=== PATIENT | female | born 1975 | race Caucasian/White ===

== ENCOUNTER 2020-05-12 09:46 | Inpatient (IN) | payer OTHER ==
[~2020-05-12] VITALS: Ht 172.7 cm; Wt 101.6 kg
[2020-05-12 10:26] LABS: APPEARANCE,URINE Clear (CLEAR); BILIRUBIN,URINE Small (NEGATIVE); COLOR,URINE Dark Yellow (YELLOW); GLUCOSE, URINE (UA) Negative (NEGATIVE); KETONES,URINE Trace mg/dL (NEGATIVE); LEUKOCYTE ESTERASE ,URINE Trace (NEGATIVE); NITRATE,URINE Negative (NEGATIVE); OCCULT BLOOD,URINE Negative (NEGATIVE); PH,URINE 5.5 (5.0-8.0); PROTEIN,URINE Trace mg/dL (NEGATIVE)
[2020-05-12] MEDS ORDERED: ONDANSETRON HCL 4 MG/2 ML VIAL ONE ×2 (10:29→15:31)
[2020-05-12] MEDS ORDERED: KETOROLAC TROMETHAMINE 30MG/ML ONE (10:29)
[2020-05-12] MEDS ORDERED: SODIUM CHLORIDE 0.9% 1000ML 1,000 ML IV ONE ×2 (10:31→15:13)
[2020-05-12 10:32] LABS: BASOPHILS % (AUTO) 0.5 % (0.0-5.0); EOSINOPHILS % (AUTO) 0.6 % (0.0-8.0); HEMATOCRIT 41.5 % (36-48); LYMPHOCYTES % (AUTO) 23.3 % (21.0-51.0); MEAN CORPUSCULAR HEMOGLOBIN 31.4 pg (27.0-33.0); MEAN CORPUSCULAR HGB CONC 34.7 g/dL (32.0-36.0); MEAN CORPUSCULAR VOLUME 90.4 fL (79-99); MONOCYTES % (AUTO) 5.8 % (3.0-13.0); NEUTROPHILS % (AUTO) 69.5 % (40.0-77.0); PLATELET COUNT (AUTO) 327 K/uL (130-400); RED BLOOD CELL COUNT(AUTO) 4.59 MIL/uL (4.00-5.50); RED CELL DISTRIBUTION WIDTH 11.9 % (11.0-15.5); WHITE BLOOD COUNT (AUTO) 14.2 K/uL (4.8-10.8)
[2020-05-12 10:47] LABS: RBC,URINE None Seen /HPF (0-1)
[2020-05-12 10:48] LABS: BACTERIA,URINE None Seen /HPF (None Seen); MUCUS,URINE Moderate LPF (None Seen); WBC,URINE 0-1 /HPF (0-1)
[2020-05-12 10:48] LABS: INR 0.92 (0.85-1.15); PARTIAL THROMBOPLASTIN TIME 26.5 SEC (26.3-35.5)
[2020-05-12 10:52] LABS: CREATININE 0.8 mg/dL (0.5-1.5); POTASSIUM 3.3 mmol/L (3.5-5.1)
[2020-05-12 10:57] LABS: ALBUMIN 3.8 g/dL (3.5-5.0); BILIRUBIN,TOTAL 0.6 mg/dL (0.2-1.0); TOTAL PROTEIN, SERUM 7.6 g/dL (6.0-8.3)
[2020-05-12] MEDS ORDERED: MORPHINE SULFATE 4 MG/1ML SYG ONE (12:54)
[2020-05-12] MEDS ORDERED: ZOSYN 3.375GM+NS 50ML 50 ML IV ONE (15:12)
[2020-05-12] MEDS ORDERED: HYDROMORPHONE 1 MG/1 ML AMP ONE ×2 (15:13→20:31)
[2020-05-12] MEDS ORDERED: MORPHINE SULFATE 2 MG/ML 1ML SYG IVP PRN (15:30)
[2020-05-12 16:23] VITALS: BP 158/99
[2020-05-12] MEDS: ONDANSETRON HCL 4 MG/2 ML VIAL IVP PRN (17:31)
[2020-05-12] MEDS ORDERED: KETOROLAC TROMETHAMINE 30MG/ML IM PRN (17:45)
[2020-05-12 20:00] VITALS: BP 124/72
--- NOTE | 2020-05-12 20:05 | NUR ---
PT CLAIMS SHE IS IN CONSTANT PAIN. CALLED DR CURRAN VIA PHONE AND REFERRED PT'S COMPLAINTS. NEW MED ORDER RECEIVED, PLEASE REFER TO CPOE. WILL MEDICATE PT.
--- NOTE | 2020-05-12 20:20 | NUR ---
MEDS SHIFT ASSESSMENT DONE, PT CLAIMS OF ABDOMINAL PAINS. DUE MEDS ADMINISTERED, DILAUDID IV GIVEN FOR PAINS. KEPT RESTED AND COMFORTABLE IN BED. CALL LIGHT WITHIN REACH. WILL RE-ASSESS PT. Addendum: 05/13/20 at 0102 by SHAR HODGE RN RN Amended: Links added.
[2020-05-12] MEDS: ZOSYN 3.375GM+NS 50ML 50 ML IV SCH (22:21)
[2020-05-13] VITALS (26 sets, daily range): BP systolic 94–148; BP diastolic 52–85
[2020-05-13] MEDS: ONDANSETRON HCL 4 MG/2 ML VIAL IVP PRN ×3 (01:26→16:35)
[2020-05-13] MEDS: HYDROMORPHONE 1 MG/1 ML AMP IVP PRN ×4 (01:27→16:35)
--- NOTE | 2020-05-13 01:27 | NUR ---
NAUSEA/PAIN PT CALLS AND COMPLAINTS OF NAUSEA AND ABDOMINAL PAINS. MEDICATED WITH ZOFRAN IV AND DILAUDID IV. KEPT RESTED AND COMFORTABLE IN BED. RE-ITERATED ON FALL PRECAUTIONS. PT VERBALIZES UNDERSTANDING. CALL LIGHT WITHIN REACH. WILL RE-ASSESS PT.
[2020-05-13 04:59] LABS: BASOPHILS % (AUTO) 0.2 % (0.0-5.0); EOSINOPHILS % (AUTO) 0.2 % (0.0-8.0); HEMATOCRIT 37.1 % (36-48); LYMPHOCYTES % (AUTO) 19.2 % (21.0-51.0); MEAN CORPUSCULAR HGB CONC 34.2 g/dL (32.0-36.0); MEAN CORPUSCULAR VOLUME 90.5 fL (79-99); MONOCYTES % (AUTO) 7.5 % (3.0-13.0); NEUTROPHILS % (AUTO) 72.5 % (40.0-77.0); PLATELET COUNT (AUTO) 293 K/uL (130-400); WHITE BLOOD COUNT (AUTO) 16.1 K/uL (4.8-10.8)
[2020-05-13 05:11] LABS: CREATININE 0.8 mg/dL (0.5-1.5); MAGNESIUM 1.5 mg/dL (1.80-2.40); POTASSIUM 3.6 mmol/L (3.5-5.1)
[2020-05-13] MEDS: ZOSYN 3.375GM+NS 50ML 50 ML IV SCH ×3 (05:27→23:18)
--- NOTE | 2020-05-13 05:27 | NUR ---
MEDS PT JUST HAD HER SHOWER, TOLERATED ACTIVITY WELL. PT CLAIMS OF ABDOMINAL PAINS. MEDICATED WITH DILAUDID IV. ZOSYSabi GUO. KEPT NPO. FOR MORE CARE AND MANAGEMENT.
[2020-05-13] MEDS ORDERED: MULT-1296 PO (05:39)
[2020-05-13] MEDS ORDERED: LEVO100T12 PO (05:39)
[2020-05-13] MEDS ORDERED: VALA500T42 PO (05:39)
[2020-05-13] MEDS ORDERED: CHLO25TA3 PO (05:39)
[2020-05-13] MEDS ORDERED: FLUO20CA30 PO (05:39)
[2020-05-13] MEDS ORDERED: MIDAZOLAM HCL 1 MG/ML 2ML VIAL ONE (07:57)
[2020-05-13] MEDS ORDERED: DEXAMETHASONE SOD PHOSPHATE 10MG/ML 1ML VIAL ONE (08:00)
[2020-05-13] MEDS ORDERED: LIDOCAINE PF 2% 5ML ABBOJECT ONE (08:00)
[2020-05-13] MEDS ORDERED: SUCCINYLCHOLINE CHLORIDE 20 MG/ML 10 ML VIAL ONE (08:00)
[2020-05-13] MEDS ORDERED: ONDANSETRON HCL 4 MG/2 ML VIAL ONE (08:00)
[2020-05-13] MEDS ORDERED: GLYCOPYRROLATE 1 MG/5 ML SYRINGE ONE (08:01)
[2020-05-13] MEDS ORDERED: ROCURONIUM 10MG/1ML SYR 10 MG/ML ML ONE (08:01)
[2020-05-13] MEDS ORDERED: PROPOFOL 10 MG/ML 20ML VIAL IV ONE (08:01)
[2020-05-13] MEDS ORDERED: FENTANYL CITRATE PF 50 MCG/1 ML 2ML VIAL ONE ×2 (08:01→09:02)
[2020-05-13] MEDS ORDERED: NEOSTIGMINE 5MG/5ML SYR IV ONE (08:01)
[2020-05-13] MEDS ORDERED: BUPIVACAINE/PF 0.5% 30ML VIAL ONE (08:15)
[2020-05-13] MEDS ORDERED: PHENYLEPHRINE HCL 10 MG/ML 1ML VIAL IV ONE (08:18)
[2020-05-13] MEDS ORDERED: KETOROLAC TROMETHAMINE 30MG/ML ONE (08:38)
[2020-05-13] MEDS: LACTATED RINGERS 1000ML 1,000 ML IV SCH ×3 (09:00→23:19)
[2020-05-13] MEDS ORDERED: MEPERIDINE-PF 25 MG/ML SYG ONE (09:14)
--- NOTE | 2020-05-13 13:11 | NUR ---
Pt only performed 2 breaths after IS instructions. Pt refused to continue because she said it hurt when she took deep breaths. Pt encouraged to continue and to splint incisions. Pt was adamant about refusing and stated, "I promise to do it every hour." I informed her of the risks of not doing it, pt voice understanding. Tucker RUIZ notified. Addendum: 05/13/20 at 1320 by NICOLAS GARCIA RT Amended: Links added.
--- NOTE | 2020-05-13 14:39 | NUR ---
cm note met with patient and states resides at home with spouse independent with ambulation and adls. no dme. works, drives, dc plan is back home at dc. no dc needs. Addendum: 05/13/20 at 1441 by WALTER CAROLINA CM Amended: Links added.
[2020-05-13] MEDS ORDERED: POLYETHYLENE GLYCOL 3350 17 GM POWD.PACK ONE (16:59)
[2020-05-13] MEDS ORDERED: ACETAMINOPHEN-CODEINE 300/30MG TAB PO PRN (20:00)
[2020-05-13] MEDS ORDERED: KETOROLAC TROMETHAMINE 30MG/ML IV PRN (20:00)
[2020-05-14 03:10] VITALS: BP 107/58
[2020-05-14 05:08] LABS: BASOPHILS % (AUTO) 0.2 % (0.0-5.0); EOSINOPHILS % (AUTO) 0.1 % (0.0-8.0); HEMATOCRIT 31.8 % (36-48); LYMPHOCYTES % (AUTO) 25.7 % (21.0-51.0); MEAN CORPUSCULAR HEMOGLOBIN 31.4 pg (27.0-33.0); MEAN CORPUSCULAR HGB CONC 33.6 g/dL (32.0-36.0); MEAN CORPUSCULAR VOLUME 93.3 fL (79-99); MONOCYTES % (AUTO) 6.9 % (3.0-13.0); NEUTROPHILS % (AUTO) 66.6 % (40.0-77.0); PLATELET COUNT (AUTO) 264 K/uL (130-400); RED BLOOD CELL COUNT(AUTO) 3.41 MIL/uL (4.00-5.50); RED CELL DISTRIBUTION WIDTH 12.1 % (11.0-15.5); WHITE BLOOD COUNT (AUTO) 12.8 K/uL (4.8-10.8)
[2020-05-14 06:12] VITALS: BP 115/65
[2020-05-14] MEDS: ZOSYN 3.375GM+NS 50ML 50 ML IV SCH ×3 (06:26→23:31)
[2020-05-14] MEDS: POLYETHYLENE GLYCOL 3350 17 GM POWD.PACK PO SCH (09:39)
[2020-05-14] MEDS: ONDANSETRON HCL 4 MG/2 ML VIAL IVP PRN ×2 (09:39→18:07)
[2020-05-14] MEDS: HYDROMORPHONE 1 MG/1 ML AMP IVP PRN ×3 (09:40→23:31)
[2020-05-14] MEDS ORDERED: POTASSIUM CHLORIDE 20 MEQ ERTAB PO ONE (11:44)
[2020-05-14] MEDS ORDERED: LIDOCAINE HCL-MPF 1% 2ML VIAL IV PRN (11:45)
[2020-05-14] MEDS ORDERED: POTASSIUM CHLORIDE 20MEQ/100ML 100 ML IV PRN (11:45)
[2020-05-14] MEDS ORDERED: POTASSIUM CHLORIDE 20 MEQ ERTAB PO PRN (11:45)
[2020-05-14] MEDS ORDERED: POTASSIUM CHLORIDE 10% ELIXIR 20 MEQ/15 ML UDCUP PO PRN (11:45)
[2020-05-14 12:21] VITALS: BP 133/78
[2020-05-14 16:00] VITALS: BP 128/77
[2020-05-14 20:47] VITALS: BP 101/58
[2020-05-14] MEDS: LACTATED RINGERS 1000ML 1,000 ML IV SCH (23:31)
[2020-05-14 23:59] VITALS: BP 132/76
[2020-05-15] MEDS: LACTATED RINGERS 1000ML 1,000 ML IV SCH (02:45)
[2020-05-15 05:00] VITALS: BP 127/73
[2020-05-15] MEDS: ZOSYN 3.375GM+NS 50ML 50 ML IV SCH ×2 (06:40→15:00)
[2020-05-15] MEDS: HYDROMORPHONE 1 MG/1 ML AMP IVP PRN (06:44)
[2020-05-15 08:00] VITALS: BP 129/77
[2020-05-15] MEDS: POLYETHYLENE GLYCOL 3350 17 GM POWD.PACK PO SCH (09:00)
--- NOTE | 2020-05-15 10:45 | NUR ---
DR. MARCO A ALFARO PT C/O CONTINUED ABDOMINAL PAIN AND NOT FEELING WELL. NEW ORDERS RECEIVED FOR LAB DRAWS.
[2020-05-15 11:22] LABS: HEMATOCRIT 32.7 % (36-48); MEAN CORPUSCULAR HEMOGLOBIN 31.4 pg (27.0-33.0); MEAN CORPUSCULAR HGB CONC 33.6 g/dL (32.0-36.0); MEAN CORPUSCULAR VOLUME 93.4 fL (79-99); RED BLOOD CELL COUNT(AUTO) 3.5 MIL/uL (4.00-5.50); RED CELL DISTRIBUTION WIDTH 12.2 % (11.0-15.5); WHITE BLOOD COUNT (AUTO) 10.1 K/uL (4.8-10.8)
[2020-05-15 11:36] LABS: CREATININE 0.8 mg/dL (0.5-1.5); MAGNESIUM 1.6 mg/dL (1.80-2.40); POTASSIUM 3.5 mmol/L (3.5-5.1)
[2020-05-15 12:00] VITALS: BP 133/78
[2020-05-15] MEDS ORDERED: MAGNESIUM 4GM PREMIX 100ML 100 ML IV SCH (12:15)
--- NOTE | 2020-05-15 12:45 | NUR ---
DR. STRICKLAND INFORMED OF PT FEELING BETTER AND ORDERS RECEIVED FOR DISCHARGE AND TO F/U IN 1 WEEK AT OFFICE
[2020-05-15] MEDS: ONDANSETRON HCL 4 MG/2 ML VIAL IVP PRN (13:04)
--- NOTE | 2020-05-15 13:05 | NUR ---
DR. CURRAN ROUNDING ON PT. PT STATES IS FEELING BETTER, IS PASSING FLATUS AND HAD A BM. ORDERS RECEIVED FOR DISCHARGE.
[2020-05-15 16:19] VITALS: BP 130/77
--- NOTE | 2020-05-17 13:01 | NUR ---
Transitional Care - Post Discharge Note Spoke with patient at number listed. As per Mrs Marcum, she is doing well. She states she has a follow up with Dr Islas next week, and is taking discharge medications as ordered. The patient understands the importance of keeping the appointment and has agreed to keep appointment. I provided nursing education on medication use and potential side effects. Addendum: 05/17/20 at 1304 by DEEJAY LINARES Amended: Links added.
== END 2020-05-15 16:20 | disposition home or self-care (01) | DRG 343 ==
LOC: EDH 09:46 → EDHIP 15:17 → 3DH 16:10
PROVIDERS: ADMIT Internal Medicine Infectious Disease; ATTEND Internal Medicine Infectious Disease
PROC: 0DTJ4ZZ Resection of Appendix, Percutaneous Endoscopic Approach (ICD-10-PCS; principal; 2020-05-13 08:28)
DX: K35.80 Unspecified acute appendicitis (principal); E87.6 Hypokalemia; K21.9 Gastro-esophageal reflux disease without esophagitis; E78.5 Hyperlipidemia, unspecified; D72.829 Elevated white blood cell count, unspecified; E11.9 Type 2 diabetes mellitus without complications; F32.9 Major depressive disorder, single episode, unspecified; E07.9 Disorder of thyroid, unspecified; E66.9 Obesity, unspecified; Z68.34 Body mass index [BMI] 34.0-34.9, adult; Z88.8 Allergy status to other drugs, medicaments and biological substances
CPT/HCPCS: 36415; 71045; 74176; 76705; 80048; 80053; 81001; 81025; 82150; 82550; 83690; 83735; 84484; 85025; 85027; 85610; 85730; 93005; G0378; J0330; J1100; J1170; J1885; J2001; J2175; J2250; J2270; J2370; J2405; J2543; J2704; J2710; J3010; J3475; J3490; J7030; J7120

== ENCOUNTER → 2022-08-05 | Outpatient (CLI) | payer OTHER ==
[~2022-08-05] MED LIST: CHLO25TA3 PO; FLUO20CA30 PO; LEVO100T12 PO; MULT-1296 PO; VALA500T42 PO
== END | disposition home or self-care (01) ==
LOC: RAH 13:51
PROVIDERS: ATTEND Internal Medicine
DX: E04.1 Nontoxic single thyroid nodule (principal); E89.0 Postprocedural hypothyroidism
CPT/HCPCS: 76536

== ENCOUNTER 2023-06-18 06:34 | Emergency (ER) | payer OTHER ==
[~2023-06-18] VITALS: Ht 172.7 cm; Wt 104.8 kg
[~2023-06-18 06:34] MED LIST changes: -FLUO20CA30 PO; +FLUO40CA49 PO; +LOSA50TA64 PO; +METF-446 PO
[2023-06-18 06:36] VITALS: BP 151/87; PULSE 87; RESP 20
[2023-06-18 08:26] LABS: BASOPHILS # (AUTO) 0.03 K/uL (0.00-0.20); BASOPHILS % (AUTO) 0.4 % (0.0-5.0); EOSINOPHILS # (AUTO) 0.12 K/uL (0.00-0.70); EOSINOPHILS % (AUTO) 1.5 % (0.0-8.0); HEMATOCRIT 28.6 % (36-48); IMMATURE GRANULOCYTE ABSOLUTE 0.04 K/uL (0-1); LYMPHOCYTES # (AUTO) 2.7 K/uL (1.0-4.8); LYMPHOCYTES % (AUTO) 32.8 % (21.0-51.0); MEAN CORPUSCULAR HEMOGLOBIN 31.4 pg (27.0-33.0); MEAN CORPUSCULAR HGB CONC 34.3 g/dL (32.0-36.0); MEAN CORPUSCULAR VOLUME 91.7 fL (79-99); MONOCYTES # (AUTO) 0.7 K/uL (0.1-1.0); MONOCYTES % (AUTO) 8.5 % (3.0-13.0); NEUTROPHILS # (AUTO) 4.6 K/uL (1.8-7.7); NEUTROPHILS % (AUTO) 56.3 % (40.0-77.0); PLATELET COUNT (AUTO) 293 K/uL (130-400); RED BLOOD CELL COUNT(AUTO) 3.12 MIL/uL (4.00-5.50); RED CELL DISTRIBUTION WIDTH 12.8 % (11.0-15.5); WHITE BLOOD COUNT (AUTO) 8.1 K/uL (4.8-10.8)
[2023-06-18] MEDS ORDERED: ACETAMINOPHEN 500 MG TABLET PO ONE (08:30)
[2023-06-18] MEDS ORDERED: ONDANSETRON ODT 4MG TAB SL ONE (08:30)
[2023-06-18] MEDS ORDERED: ONDANSETRON 4MG INJ IVP ONE (08:30)
[2023-06-18 08:44] LABS: CREATININE 0.6 mg/dL (0.5-1.5); POTASSIUM 3.2 mmol/L (3.5-5.1)
[2023-06-18 08:49] LABS: ALBUMIN 3.5 g/dL (3.5-5.0); BILIRUBIN,TOTAL 2.3 mg/dL (0.2-1.0); TOTAL PROTEIN, SERUM 7.1 g/dL (6.0-8.3)
[2023-06-18] MEDS ORDERED: POTA-364 PO (09:03)
[2023-06-18] MEDS ORDERED: KCL 20 MEQ ERTAB PO ONE (09:30)
== END 2023-06-18 09:41 | disposition home or self-care (01) ==
LOC: EDH 06:34
DX: G89.18 Other acute postprocedural pain (principal); E87.6 Hypokalemia; M79.10 Myalgia, unspecified site; E11.9 Type 2 diabetes mellitus without complications; E03.9 Hypothyroidism, unspecified; I10 Essential (primary) hypertension; Z79.624 Long term (current) use of inhibitors of nucleotide synthesis; Z79.84 Long term (current) use of oral hypoglycemic drugs; Z79.899 Other long term (current) drug therapy; Z90.49 Acquired absence of other specified parts of digestive tract
CPT/HCPCS: 99283; 96374; 80053; 85025; 83605; 36415; J2405

== ENCOUNTER 2024-05-29 11:56 | Emergency (ER) | payer OTHER ==
[~2024-05-29] VITALS: Ht 172.7 cm; Wt 81.6 kg
[~2024-05-29 11:56] MED LIST changes: +POTA-364 PO
--- NOTE | 2024-05-29 12:14 | NUR ---
PENDING TEST RESULTS FOR CT EXAM.
[2024-05-29 12:24] LABS: BASOPHILS # (AUTO) 0.06 K/uL (0.00-0.20); BASOPHILS % (AUTO) 0.4 % (0.0-5.0); EOSINOPHILS # (AUTO) 0.03 K/uL (0.00-0.70); EOSINOPHILS % (AUTO) 0.2 % (0.0-8.0); HEMATOCRIT 41.4 % (36-48); IMMATURE GRANULOCYTE ABSOLUTE 0.07 K/uL (0-1); LYMPHOCYTES # (AUTO) 2.9 K/uL (1.0-4.8); LYMPHOCYTES % (AUTO) 19.9 % (21.0-51.0); MEAN CORPUSCULAR HEMOGLOBIN 31.4 pg (27.0-33.0); MEAN CORPUSCULAR HGB CONC 34.8 g/dL (32.0-36.0); MEAN CORPUSCULAR VOLUME 90.2 fL (79-99); MONOCYTES # (AUTO) 0.9 K/uL (0.1-1.0); MONOCYTES % (AUTO) 6.2 % (3.0-13.0); NEUTROPHILS # (AUTO) 10.6 K/uL (1.8-7.7); NEUTROPHILS % (AUTO) 72.8 % (40.0-77.0); PLATELET COUNT (AUTO) 330 K/uL (130-400); RED BLOOD CELL COUNT(AUTO) 4.59 MIL/uL (4.00-5.50); RED CELL DISTRIBUTION WIDTH 11.9 % (11.0-15.5); WHITE BLOOD COUNT (AUTO) 14.6 K/uL (4.8-10.8)
--- NOTE | 2024-05-29 12:38 | ERN ---
General Chief Complaint: Back Pain-No Injury Stated Complaint: BACK PAIN Time Seen by MD: 11:58 Time Seen by Midlevel: 11:58 Source: patient History of Present Illness Initial Comments 49-year-old female who presents to the ED due to left back pain onset this morning at 3:00 a.m. Patient reports nausea, vomiting but denies fever or further associated symptoms. States the pain radiates to the left side of the abdomen. Patient reports history of kidney stone, herniated disc, and hy pothyroidism Allergies: Coded Allergies: epinephrine (Verified Allergy, Unknown, 05/12/20) Home Meds Active Scripts Tamsulosin HCl (Flomax) 0.4 Mg Cap.er.24h, 0.4 MG PO DAILY for 7 Days, #7 CAPSULE.DR Prov:ROCÍO CHOWDHURY 05/29/24 Ondansetron (Ondansetron Odt) 4 Mg Tab.rapdis, 4 MG PO ONCE PRN for TID for 3 Days, #9 TAB Prov:ROCÍO CHOWDHURY 05/29/24 Potassium Chloride (Potassium Chloride) 20 Meq Tablet.er, 20 MEQ PO DAILY for 10 Days, #10 TAB 0 Refills Prov:JENNIFER BRAND MD 06/18/23 Reported Medications Metformin HCl (Metformin HCl) 1,000 Mg Tablet, 1000 MG PO DAILY, TAB 06/06/23 Losartan Potassium (Losartan Potassium) 50 Mg Tablet, 50 MG PO DAILY, TAB 06/06/23 Fluoxetine HCl (Fluoxetine HCl) 40 Mg Capsule, 40 MG PO DAILY, CAP 06/06/23 Multivitamin/Iron/Folic Acid (Centrum Adults Tablet) 1 Each Tablet, 1 EACH PO DAILY, TAB 05/13/20 Chlorthalidone (Chlorthalidone) 25 Mg Tablet, 25 MG PO DAILY, TAB 05/13/20 Valacyclovir HCl (Valacyclovir) 500 Mg Tablet, 500 MG PO DAILY, TAB 05/13/20 Levothyroxine Sodium (Levothyroxine Sodium) 100 Mcg Tablet, 100 MCG PO ACBKFST, TAB 05/13/20 Past Medical History Past Medical History: Hypothyroid Past Surgical History: Other Surgical History Other: GASTRIC BYPASS ROS Dictation Constitutional: Negative for fever,chills, and weight loss Eyes: Negative for injury, pain,redness, and discharge ENT: Negative for injury,pain or swelling Cardiovascular: Negative for chest pain, palpitations, and edema Respiratory: Negative for shortness of breath, cough, and wheezing, Abdomen/GI: Positive for nausea, vomiting, abdominal pain Negative for diarrhea, and constipation Back: Positive for left back pain Negative for injury : Negative for painful urination, bleeding or discharge MS/Extremity: Negative for injury and deformity Skin: Negative for rash, and discoloration Neuro: Negative for headache, weakness, numbness, tingling, and seizure Psych: Negative for suicide ideation, homicidal ideation, and hallucinations Physical Exam Physical Exam Dictation General: awake, alert, no acute distress Head/Face: Normocephalic, atraumatic Eyes: normal conjunctiva ENT: oral cavity clear, oral mucosa moist Neck: Normal range of motion Cardiovascular: RRR, normal S1/S2 Respiratory: CTAB, no respiratory distress, no rales or wheezes Abdomen: Soft, non-tender, non-distended, no guarding or rebound. Back: Mild left CVA tenderness Skin: Warm, dry, normal turgor, no rash MS/Extremity: Pulses equal, no cyanosis, neurovascular intact, FROM Neuro: COAx4, GCS 15, normal gait, Psych: Normal behavior, mood, and affect normal Results Laboratory and Microbiology Lab and Micro Result Laboratory Tests Test 05/29/24 12:11 05/29/24 12:57 White Blood Count 14.6 K/uL (4.8-10.8) H Red Blood Count 4.59 MIL/uL (4.00-5.50) Hemoglobin 14.4 g/dL (12.0-16.0) Hematocrit 41.4 % (36-48) Mean Corpuscular Volume 90.2 fL (79-99) Mean Corpuscular Hemoglobin 31.4 pg (27.0-33.0) Mean Corpuscular Hemoglobin Concent 34.8 g/dL (32.0-36.0) Red Cell Distribution Width 11.9 % (11.0-15.5) Platelet Count 330 K/uL (130-400) Mean Platelet Volume 9.9 fL (7.5-10.5) Immature Granulocyte % (Auto) 0.5 % (0-1) Neutrophils (%) (Auto) 72.8 % (40.0-77.0) Lymphocytes (%) (Auto) 19.9 % (21.0-51.0) L Monocytes (%) (Auto) 6.2 % (3.0-13.0) Eosinophils (%) (Auto) 0.2 % (0.0-8.0) Basophils (%) (Auto) 0.4 % (0.0-5.0) Neutrophils # (Auto) 10.6 K/uL (1.8-7.7) H Lymphocytes # (Auto) 2.9 K/uL (1.0-4.8) Monocytes # (Auto) 0.9 K/uL (0.1-1.0) Eosinophils # (Auto) 0.03 K/uL (0.00-0.70) Basophils # (Auto) 0.06 K/uL (0.00-0.20) Absolute Immature Granulocyte (auto 0.07 K/uL (0-1) Nucleated Red Blood Cells 0.0 % (0.0-0.19) Sodium Level 140 mmol/L (136-145) Potassium Level 2.7 mmol/L (3.5-5.1) *L Chloride Level 102 mmol/L (101-111) Carbon Dioxide Level 28 mmol/L (21-32) Blood Urea Nitrogen 15 mg/dL (7-18) Creatinine 1.0 mg/dL (0.5-1.0) Glomerular Filtration Rate Calc 69 mL/min (>90) Random Glucose 89 mg/dL (70-105) Total Calcium 9.0 mg/dL (8.5-10.1) Urine Color LIGHT-YELLOW (YELLOW) Urine Appearance CLEAR (CLEAR) Urine pH 7.0 (5.0-8.0) Urine Specific [place] 1.018 (1.001-1.031) Urine Protein NEGATIVE mg/dL (NEGATIVE) Urine Glucose (UA) NEGATIVE mg/dL (NEGATIVE) Urine Ketones 10 mg/dL (NEGATIVE) H Urine Occult Blood NEGATIVE (NEGATIVE) Urine Nitrate NEGATIVE (NEGATIVE) Urine Bilirubin NEGATIVE mg/dL (NEGATIVE) Urine Urobilinogen 0.2 mg/dL (0.2-1.0) Urine Leukocyte Esterase NEGATIVE Danny/uL Urine RBC 6-10 /HPF (0-1) H Urine WBC 0-1 /HPF (0-1) Urine Squamous Epithelial Cells RARE /HPF (0-2) Urine Bacteria None /HPF (None Seen) Urine HCG, Qualitative NEGATIVE (NEGATIVE) Urine Opiates Screen NEGATIVE (NEGATIVE) Urine Barbiturates Screen NEGATIVE (NEGATIVE) Urine Phencyclidine Screen NEGATIVE (NEGATIVE) Urine Amphetamines Screen NEGATIVE (NEGATIVE) Urine Benzodiazepines Screen NEGATIVE (NEGATIVE) Urine Cocaine Screen NEGATIVE (NEGATIVE) Urine Marijuana (THC) Screen NEGATIVE (NEGATIVE) Labs Reviewed?: Yes EKG/XRAY/US/CT/MRI CT Scan Comment REASON: Flank pain ORDERING PHYSICIAN: ROCÍO CHOWDHURY PROCEDURE: ABD PEL WO - CT ABDOMEN/PELVIS W/O CONTRAST CT ABDOMEN PELVIS WITHOUT CONTRAST Clinical Information: Flank pain Comparison: None CT Dose Index (CTDI): 28.40 mGy Dose Length Product (DLP): 1536.00 total mGy-cm PROTOCOL: Routine noncontrast helical scanning of the abdomen and pelvis was performed at 5mm collimation. Findings: There is a left ureterovesical junction calculus measuring 8 mm causing [id number] hydroureteronephrosis. The contralateral kidney is unremarkable. The lung bases are clear. The stomach is unremarkable. It shows no wall thickening. No gross ulceration is seen. It is not overly distended. There are no surrounding inflammatory changes. No wall lesions are identified to suggest cancer. The spleen is unremarkable. It is not enlarged. The pancreas shows normal anatomy. It is not fatty replaced. It shows no lesions. The pancreatic duct is not dilated. The gallbladder is unremarkable. It shows no cholelithiasis. The gallbladder wall is normal in thickness. There is no pericholecystic fluid. The is no acute or chronic inflammation noted. The adrenal glands are unremarkable. There is no enlargement. No lesions are noted. The liver is unremarkable. It shows no focal masses. The appendix is unremarkable. It shows no evidence of inflammation. No appendicolith is seen. The small bowel is unremarkable. There is no evidence of dilatation to suggest obstruction. No evidence of adynamic ileus is seen. There is no small bowel wall thickening to suggest enteritis. The colon is unremarkable. The urinary bladder is unremarkable. There is no wall thickening to suggest tumor or inflammation. There are no intraluminal calculi. There are no diverticula. There is no evidence of chronic bladder outlet obstruction. There is no evidence of urinary bladder distention to suggest urinary retention. The other pelvic structures are unremarkable. The bony and vascular structures are unremarkable for the patient's age. IMPRESSION: Urinary tract calculus causing obstruction. This study was performed using dose reduction techniques to include automated exposure control and/or adjustment of the mA and/or kV according to patient size. MDM MDM: Differential diagnosis: UTI, pyelonephritis, nephrolithiasis Rationale: 49-year-old female who presents to the ED due to left back pain onset this morning at 3:00 a.m. Patient reports nausea, vomiting but denies fever or further associated symptoms. States the pain radiates to the left side of the abdomen. Patient reports history of kidney stone, herniated disc Labs obtained indicate potassium of 2.7 otherwise nonspecific. UA negative for urinary tract infection. Drug screen obtained negative. CT abdomen and pelvis indicates left ureterovesical junction calculus measuring 8 mm causing [id number] hydroureteronephrosis. Patient declined morphine due to the way it makes her feel therefore acetaminophen with hydrocodone was administered along with ketorolac. Patient received Zofran by EMS prior to arrival. Patient was educated on findings and diagnosis. Due to the lack of infection and pain control patient is stable for discharge. She was educated on findings and diagnosis. Advised to follow up with PCP and urologist. Return to the ED if any worsening symptoms. Patient verbalized understanding. There are no social concerns with this patient. I independently interpreted the test that were performed, results were reviewed by me and considered findings on radiology if ordered. Medical management and examination interpretation discussions were had by me with other qualified healthcare professionals as indicated for the patient's ca re. ED Course Orders Procedure Category Date Status Time Urinalysis Profile LAB 05/29/24 Complete 12: Cbc With Differential LAB 05/29/24 Complete 12: Basic Metabolic Panel LAB 05/29/24 Complete 12:01 Ct Abdomen/Pelvis W/O CT 05/29/24 Resulted Contrast 12:02 ,Urine Test LAB 05/29/24 Complete 12:02 Morphine 4mg Syg PHA 05/29/24 Complete (Morphine 4mg Syg) 12:30 0.9%Nacl 1000ml (Ns PHA 05/29/24 Complete 1000ml) 12:30 Drug Screen Urine LAB 05/29/24 Complete 12:14 Ketorolac PHA 05/29/24 Complete Tromethamine 30mg/Ml 13:30 Potassium Bicarb/Cit PHA 05/29/24 Complete Ac 25meq (K-Lyte Ta 13:30 Tamsulosin Hcl PHA 05/29/24 Complete (Flomax) 14:30 Hydrocodone/Apap PHA 05/29/24 Complete 5/325 ([place] 5/325mg) 14:30 Current Medications Medications (Trade) Dose Ordered Sig/Natanael Route PRN Reason Start Time Stop Time Status Last Admin Dose Admin Acetaminophen/ Hydrocodone Bitart (NORco 5/325MG) 1 tab ONCE ONCE PO 05/29/24 14:30 05/29/24 14:31 DC 05/29/24 14:33 Ketorolac Tromethamine (toRADol) 30 mg ONCE ONCE IVP 05/29/24 13:30 05/29/24 13:31 DC 05/29/24 13:27 Morphine Sulfate (morPHINE 4MG SYG) 4 mg ONCE ONCE IVP 05/29/24 12:30 05/29/24 12:31 DC Potassium Bicarbonate (K-Lyte Tablet Eff 25 Meq Tablet.eff) 50 meq ONCE ONCE PO 05/29/24 13:30 05/29/24 13:31 DC 05/29/24 13:27 Sodium Chloride 1,000 ml @ 0 mls/hr ONCE ONCE IV 05/29/24 12:30 05/29/24 12:31 DC 05/29/24 13:26 Tamsulosin HCl (FloMAX) 0.4 mg ONCE ONCE PO 05/29/24 14:30 05/29/24 14:31 DC 05/29/24 14:33 Vital Signs Date Time Temp Pulse Resp B/P (MAP) Pulse Ox O2 Delivery O2 Flow Rate FiO2 05/29/24 14:37 98.2 89 16 94/55 98 Room Air* 0 21 05/29/24 12:25 98.2 65 18 109/57 98 Room Air* 0 21 05/29/24 11:58 98.4 75 18 134/74 98 Room Air 0 DX & DISP Disposition: Discharge Departure Impression: Primary Impression: Calculus of ureterovesical junction (UVJ) Condition: Stable Scripts Hydrocodone/Acetaminophen (Hydrocodone-Acetamin 5-300 mg) 5 Mg-300 Mg Tablet 1 TAB PO QIDP PRN for pain for 5 Days, #20 TAB 0 Refills Prov: DAYO ALBRIGHT DO 05/29/24 Tamsulosin HCl (Flomax) 0.4 Mg Cap.er.24h 0.4 MG PO DAILY for 7 Days, #7 CAPSULE.DR Prov: ROCÍO CHOWDHURY 05/29/24 Ondansetron (Ondansetron Odt) 4 Mg Tab.rapdis 4 MG PO ONCE PRN for TID for 3 Days, #9 TAB Prov: ROCÍO CHOWDHURY 05/29/24 Additional Instructions: Discharge home. Rest. Follow up with primary care DrErnestine in 24 hours. Return to the ER for any acute changes or worsening symptoms. If any medications were prescribed take as directed. Okay to continue home medications unless otherwise discussed during your visit in the emergency room today. Patient was also advised to follow-up with primary care physician in 1 to 2 days for continued monitoring. Referrals: MARICEL GUERRA (PCP) WYATT SCALES MD, MICHAEL J MD I participated in the following activities of this patient's care: For this patient encounter, I reviewed the PA or [employer] DES[employer]ER documentation, treatment plan, and medical decision making. I did not have [id number] time with this patient. I will sign as the reviewing DrErnestine And agree with the treatment plan and disposition. I performed a substantive portion of the visit. I have reviewed and personally made and approve the management plan that is documented in the notes by myself with ISMA/resident. I acknowledged full responsibility for the patient's management plan. ROCÍO CHOWDHURY May 29, 2024 12:38 DAYO ALBRIGHT DO May 29, 2024 18:06
[2024-05-29 12:43] LABS: POTASSIUM 2.7 mmol/L (3.5-5.1)
[2024-05-29 13:09] LABS: APPEARANCE,URINE CLEAR (CLEAR); BILIRUBIN,URINE NEGATIVE (NEGATIVE); COLOR,URINE LIGHT-YELLOW (YELLOW); GLUCOSE, URINE (UA) NEGATIVE (NEGATIVE); KETONES,URINE 10 mg/dL (NEGATIVE); LEUKOCYTE ESTERASE ,URINE NEGATIVE Leu/uL (NEGATIVE); NITRATE,URINE NEGATIVE (NEGATIVE); OCCULT BLOOD,URINE NEGATIVE (NEGATIVE); PROTEIN,URINE NEGATIVE (NEGATIVE); UROBILINOGEN,URINE 0.2 mg/dL (0.2-1.0)
[2024-05-29 13:12] LABS: ADD UA MICROSCOPIC YES
[2024-05-29 13:16] LABS: AMPHET/METH SCREEN,URINE NEGATIVE (NEGATIVE); BARBITURATE SCREEN, URINE NEGATIVE (NEGATIVE); BENZODIAZEPINES SCREEN,URINE NEGATIVE (NEGATIVE); CANNABINOID SCREEN,URINE NEGATIVE (NEGATIVE); COCAINE SCREEN,URINE NEGATIVE (NEGATIVE); OPIATE SCREEN,URINE NEGATIVE (NEGATIVE); PHENCYCLIDINE SCREEN,URINE NEGATIVE (NEGATIVE)
[2024-05-29] MEDS: 0.9%NACL 1000ML 1,000 ML IV ONE (13:26)
[2024-05-29] MEDS: PoTASSium BIcarbonate/CIT AC 25 MEQ TABLET.EFF PO ONE (13:27)
[2024-05-29] MEDS: morPHINE 4 MG SYG IVP ONE (13:27)
[2024-05-29] MEDS: ketOROlac 30MG VIAL (30MG/ML) IVP ONE (13:27)
--- NOTE | 2024-05-29 13:40 | HMCIMG ---
CT ABDOMEN PELVIS WITHOUT CONTRAST Clinical Information: Flank pain Comparison: None CT Dose Index (CTDI): 28.40 mGy Dose Length Product (DLP): 1536.00 total mGy-cm PROTOCOL: Routine noncontrast helical scanning of the abdomen and pelvis was performed at 5mm collimation. Findings: There is a left ureterovesical junction calculus measuring 8 mm causing [id number] hydroureteronephrosis. The contralateral kidney is unremarkable. The lung bases are clear. The stomach is unremarkable. It shows no wall thickening. No gross ulceration is seen. It is not overly distended. There are no surrounding inflammatory changes. No wall lesions are identified to suggest cancer. The spleen is unremarkable. It is not enlarged. The pancreas shows normal anatomy. It is not fatty replaced. It shows no lesions. The pancreatic duct is not dilated. The gallbladder is unremarkable. It shows no cholelithiasis. The gallbladder wall is normal in thickness. There is no pericholecystic fluid. The is no acute or chronic inflammation noted. The adrenal glands are unremarkable. There is no enlargement. No lesions are noted. The liver is unremarkable. It shows no focal masses. The appendix is unremarkable. It shows no evidence of inflammation. No appendicolith is seen. The small bowel is unremarkable. There is no evidence of dilatation to suggest obstruction. No evidence of adynamic ileus is seen. There is no small bowel wall thickening to suggest enteritis. The colon is unremarkable. The urinary bladder is unremarkable. There is no wall thickening to suggest tumor or inflammation. There are no intraluminal calculi. There are no diverticula. There is no evidence of chronic bladder outlet obstruction. There is no evidence of urinary bladder distention to suggest urinary retention. The other pelvic structures are unremarkable. The bony and vascular structures are unremarkable for the patient's age. IMPRESSION: Urinary tract calculus causing obstruction. This study was performed using dose reduction techniques to include automated exposure control and/or adjustment of the mA and/or kV according to patient size.
[2024-05-29 14:06] LABS: MUCUS,URINE RARE LPF (None Seen); SQUAMOUS EPITHELIAL CELL,UR RARE /HPF (0-2); WBC,URINE 0-1 /HPF (0-1)
[2024-05-29] MEDS: HYDROcodone/APAP 5/325 1 TAB TABLET PO ONE (14:33)
[2024-05-29] MEDS: tamSULOsin HCL 0.4 MG CAP.ER.24H PO ONE (14:33)
[2024-05-29] MEDS ORDERED: ONDA-243 PO (14:33)
[2024-05-29] MEDS ORDERED: TAMS-1 PO (14:33)
[2024-05-29 14:37] VITALS: BP 94/55; PULSE 89; RESP 16; TEMP 98.3; O2SAT 98
[2024-05-29] MEDS ORDERED: HYDR-4377 PO (18:02)
== END 2024-05-29 14:49 | disposition home or self-care (01) ==
LOC: EDH 11:56
DX: N20.1 Calculus of ureter (principal); E03.9 Hypothyroidism, unspecified; Z79.624 Long term (current) use of inhibitors of nucleotide synthesis; Z79.84 Long term (current) use of oral hypoglycemic drugs; Z79.899 Other long term (current) drug therapy; Z98.84 Bariatric surgery status; Z98.890 Other specified postprocedural states
CPT/HCPCS: 99285; 74176; 96374; 80048; 80305; 85025; 81025; 36415; 81001; J7030; J1885